=== PATIENT | male | born 1960 | race Caucasian/White ===

== ENCOUNTER 2021-05-15 20:28 | Observation (INO) ==
[2021-05-15] MEDS ORDERED: NITROGLYCERIN 2% OINT 1 INCH/GM PACK TOP STA (20:55)
[2021-05-15] MEDS ORDERED: ONDANSETRON 4 MG/2 ML VIAL IV STA (20:55)
[2021-05-15] MEDS ORDERED: MORPHINE 2 MG/1 ML SYRINGE IV STA (20:55)
[2021-05-15] MEDS ORDERED: ASPIRIN 325 MG TABLET PO STA (20:55)
[2021-05-15 21:01] LABS: Basophils % 0.3 % (0.0-0.8); Eosinophils # 0.2 10*3/uL (0.0-0.87); Eosinophils % 1.4 % (0.00-10.9); Hematocrit 42.9 VOL% (42.0-52.0); Hemoglobin 15.4 GM/DL (14.0-18.0); Immature Granulocytes % 0.6 %; Immature Granulocytes Absolute 0.07 #; Lymphocytes # 1.9 10*3/uL (1.4-4.0); Lymphocytes % 15.7 % (21.2-54.2); Mean Corpuscular HGB Conc 35.9 GM/DL (32-36); Mean Corpuscular Volume 86.1 FL (87-102); Mean Platelet Volume 10.7 FL (9.6-12.0); Monocytes % 6.3 % (1.7-12.7); Neutrophils % 75.7 % (38.7-73.9); Platelet Count 240 T/CUMM (130-400); Red Blood Count 4.98 MC/CUMM (3.8-5.5); Red Cell Distribution Width 12.4 % (9.3-17.3); White Blood Count 12.1 T/CUMM (4-12)
[2021-05-15 21:12] LABS: INR 0.9; PT Patient Result 10.7 SECS (10.5-12.0); Partial Thromboplastin Time 27.9 SECS (23.9-33.8)
[2021-05-15 21:35] LABS: Albumin 3.9 G/DL (3.4-5.0); Bilirubin,Total 0.7 MG/DL (0.20-1.00); Calcium 8.9 MG/DL (8.5-10.1); Osmolality,Calculated 281.4 MOS/KG (273-304); Potassium 3.9 MMOL/L (3.5-5.1); Total Protein 7.9 G/DL (6.4-8.2)
[2021-05-15] MEDS ORDERED: ENOXAPARIN 100 MG/ML SYRINGE SUBCUT STA (21:57)
[2021-05-15] MEDS ORDERED: ONDANSETRON 4 MG/2 ML VIAL IV PRN (23:42)
[2021-05-15] MEDS ORDERED: MORPHINE 2 MG/1 ML SYRINGE IV PRN (23:42)
[2021-05-16] MEDS: ENOXAPARIN 40 MG/0.4 ML SYRINGE SUBCUT SCH ×2 (00:15→23:01)
[2021-05-16] MEDS: SODIUM CHLORIDE 0.9% 1,000 ML IV SCH ×2 (00:27→17:41)
[2021-05-16 02:50] LABS: Basophils # 0.1 10*3/uL (0.0-0.2); Basophils % 0.4 % (0.0-0.8); Eosinophils # 0.2 10*3/uL (0.0-0.87); Eosinophils % 1.5 % (0.00-10.9); Hematocrit 42.3 VOL% (42.0-52.0); Hemoglobin 15.4 GM/DL (14.0-18.0); Immature Granulocytes % 0.5 %; Immature Granulocytes Absolute 0.07 #; Lymphocytes # 3.9 10*3/uL (1.4-4.0); Lymphocytes % 28.2 % (21.2-54.2); Mean Corpuscular HGB Conc 36.4 GM/DL (32-36); Mean Platelet Volume 10.5 FL (9.6-12.0); Monocytes % 8.9 % (1.7-12.7); Neutrophils % 60.5 % (38.7-73.9); Platelet Count 225 T/CUMM (130-400); Red Blood Count 4.86 MC/CUMM (3.8-5.5); Red Cell Distribution Width 12.2 % (9.3-17.3)
[2021-05-16 03:11] LABS: Albumin 3.7 G/DL (3.4-5.0); Bilirubin,Total 0.6 MG/DL (0.20-1.00); Calcium 8.6 MG/DL (8.5-10.1); Osmolality,Calculated 283.1 MOS/KG (273-304); Potassium 3.5 MMOL/L (3.5-5.1); Risk Ratio 5.64; Total Protein 7.2 G/DL (6.4-8.2); VLDL Cholesterol 29.2 MG/DL
[2021-05-16] MEDS: PANTOPRAZOLE 40 MG TABLET PO SCH (09:26)
[2021-05-16] MEDS: METOPROLOL SUCCINATE XL 25 MG TABLET PO SCH (09:26)
[2021-05-16] MEDS: ASPIRIN EC 81 MG TABLET PO SCH (09:26)
[2021-05-16] MEDS: amLODIPine 5 MG TABLET PO SCH (09:27)
[2021-05-16] MEDS: DOCUSATE SODIUM 100 MG CAPSULE PO SCH ×2 (10:12→21:01)
[2021-05-16] MEDS: AZELASTINE NASAL 137 MCG/SPRAY 30 ML BOTTLE BOTH NARES SCH ×2 (15:26→21:00)
[2021-05-16] MEDS: ACETAMINOPHEN 325 MG TABLET PO PRN (22:59)
[2021-05-17] MEDS: SODIUM CHLORIDE 0.9% 1,000 ML IV SCH ×2 (02:30→19:29)
[2021-05-17] MEDS ORDERED: PROMETHAZINE 25 MG/1 ML VIAL IM PRN (04:23)
[2021-05-17] MEDS: ASPIRIN EC 81 MG TABLET PO SCH (10:42)
[2021-05-17] MEDS: COENZYME Q10 100 MG CAPSULE PO SCH (10:42)
[2021-05-17] MEDS: OLMESARTAN 5 MG TABLET PO SCH (10:43)
[2021-05-17] MEDS: PANTOPRAZOLE 40 MG TABLET PO SCH (10:43)
[2021-05-17] MEDS: amLODIPine 5 MG TABLET PO SCH (10:43)
[2021-05-17] MEDS: MULTIVITAMIN (CENTRUM) TABLET PO SCH (10:43)
[2021-05-17] MEDS: METOPROLOL SUCCINATE XL 25 MG TABLET PO SCH (10:43)
[2021-05-17] MEDS: AZELASTINE NASAL 137 MCG/SPRAY 30 ML BOTTLE BOTH NARES SCH ×2 (10:45→20:01)
[2021-05-17] MEDS: DOCUSATE SODIUM 100 MG CAPSULE PO SCH ×2 (10:45→20:00)
[2021-05-17] MEDS: ACETAMINOPHEN 325 MG TABLET PO PRN (14:43)
[2021-05-17] MEDS ORDERED: MORPHINE 2 MG/1 ML SYRINGE IV PRN (19:30)
[2021-05-17] MEDS: ENOXAPARIN 40 MG/0.4 ML SYRINGE SUBCUT SCH ×2 (20:00→23:23)
[2021-05-18] MEDS: SODIUM CHLORIDE 0.9% 1,000 ML IV SCH (06:07)
[2021-05-18] MEDS: PANTOPRAZOLE 40 MG TABLET PO SCH (09:30)
[2021-05-18] MEDS: ASPIRIN EC 81 MG TABLET PO SCH (09:30)
[2021-05-18] MEDS: METOPROLOL SUCCINATE XL 25 MG TABLET PO SCH (09:30)
[2021-05-18] MEDS: amLODIPine 5 MG TABLET PO SCH (09:30)
[2021-05-18] MEDS: MULTIVITAMIN (CENTRUM) TABLET PO SCH (09:30)
[2021-05-18] MEDS: COENZYME Q10 100 MG CAPSULE PO SCH (09:30)
[2021-05-18] MEDS: AZELASTINE NASAL 137 MCG/SPRAY 30 ML BOTTLE BOTH NARES SCH (09:37)
[2021-05-18] MEDS: DOCUSATE SODIUM 100 MG CAPSULE PO SCH (09:37)
[2021-05-18] MEDS: ACETAMINOPHEN 325 MG TABLET PO PRN (15:25)
[2021-05-18] MEDS: OLMESARTAN 5 MG TABLET PO SCH (15:27)
[2021-05-18 17:45] VITALS: BP 162/83
[2021-05-18] MEDS ORDERED: ATORVASTATIN 10 MG TABLET PO SCH (21:00)
== END 2021-05-18 18:24 | disposition home or self-care (01) ==
LOC: N.EDINP 20:28 → N.ED 20:28 → N.EDINP 23:22 → N.TELEN 23:41
PROVIDERS: ADMIT Family Medicine; ATTEND Family Medicine